=== PATIENT | male | born 1960 | race Two or more races ===

== ENCOUNTER 2021-11-01 18:19 | Emergency (ER) | payer OTHER ==
[~2021-11-01] VITALS: Ht 167.6 cm; Wt 54.4 kg
[2021-11-01] MEDS ORDERED: HYDR-3972 PO (18:29)
[2021-11-01] MEDS ORDERED: OXYC1TAB12 PO (18:29)
[2021-11-01] MEDS ORDERED: IV NS 1000 ML 1,000 ML IV ONE (18:30)
[2021-11-01] MEDS ORDERED: HYDROMORPHONE 1 MG/1 ML DISP.SYRIN IV ONE (18:30)
[2021-11-01] MEDS ORDERED: HYDROMORPHONE 1 MG/1 ML DISP.SYRIN ONE (18:31)
[2021-11-01] MEDS ORDERED: HYDROMORPHONE 2 MG/1 ML DISP.SYRIN ONE (18:31)
[2021-11-01 18:43] LABS: HEMATOCRIT 36.7 % (36.7-47.1); MEAN CORPUSCULAR HEMOGLOBIN 27.5 uug (23.8-33.4); MEAN CORPUSCULAR VOLUME 81.4 fL (73.0-96.2); PLATELET COUNT (AUTO) 379 K/uL (152-348)
[2021-11-01] MEDS ORDERED: IV NORMAL SALINE 250 ML IV ONE (18:46)
[2021-11-01] MEDS ORDERED: IOHEXOL 300MG/ML 100 ML INFUS..BTL ONE (18:46)
[2021-11-01] MEDS ORDERED: SWABABLE VALVE TRANSFER SET EA MC ONE (18:46)
[2021-11-01 18:57] LABS: BILIRUBIN,DIRECT 0.1 mg/dL (0.0-0.2); BILIRUBIN,TOTAL 0.3 mg/dL (0.2-1.0); CREATININE 1.4 mg/dL (0.6-1.3); TOTAL PROTEIN, SERUM 6.9 g/dL (6.4-8.2)
--- NOTE | 2021-11-01 19:00 | NUR ---
Assumed care of patient from day shift nurse Kuldip. Patient AAO. In no apparent distress. Lying comfortably in bed. Abd with dressing in place. Suprapubic catheter draining billy color urine. Nephrostomy tube, no drainage noted.
--- NOTE | 2021-11-01 19:35 | NUR ---
Back from CT.
[2021-11-01 20:02] LABS: *BILIRUBIN,URIN NEGATIVE (NEGATIVE); *BLOOD, URINE 3+ (NEGATIVE); *CLARITY,URINE CLOUDY (CLEAR); *COLOR,URINE AMBER (YELLOW); *KETONES,URINE NEGATIVE (NEGATIVE); *UROBILINOGEN,URINE 0.2 E.U./dl (NORMAL); LEUKOCYTE ESTERASE ,URINE 3+ (NEGATIVE); NITRITE, URINE NEGATIVE (NEGATIVE); UGLUCOSE NEGATIVE (NEGATIVE)
[2021-11-01] MEDS ORDERED: CEFTRIAXONE /D5W 50ML IVPB **ER PYXIS IV ONE (20:14)
[2021-11-01] MEDS ORDERED: CEFTRIAXONE 1 G in IV DEXTROSE 5% 50 ML IV ONE (20:15)
[2021-11-01] MEDS ORDERED: HYDR4TAB4 PO (21:14)
[2021-11-01] MEDS ORDERED: SULF1TAB48 PO (21:14)
--- NOTE | 2021-11-01 21:35 | NUR ---
Patient discharged to home in stable condition. Written and verbal after care instructions given. Patient verbalizes understanding of instructions. Stressed follow up or return to ER for worsening s/s. Patient ambulated fr the ER with steady gait. All belongings with patient.
[2021-11-01 22:01] VITALS: BP 113/77
[2021-11-01 22:22] LABS: BACTERIA,URINE MODERATE /HPF (NONE SEEN); RBC,URINE TNTC /HPF (0-3); SQUAMOUS EPITHELIAL CELL,UR FEW /HPF (NONE SEEN); WBC,URINE TNTC /HPF (0-3)
== END 2021-11-01 21:35 | disposition home or self-care (01) ==
LOC: ER 18:24
DX: C64.9 Malignant neoplasm of unspecified kidney, except renal pelvis (principal); C78.7 Secondary malignant neoplasm of liver and intrahepatic bile duct; N13.6 Pyonephrosis; Z59.02 Unsheltered homelessness; Z93.6 Other artificial openings of urinary tract status
CPT/HCPCS: 36415; 74176; 80048; 80076; 81001; 85025; 87086; 96361; 96365; 96375; 99285; J0696; J1170 ×2; J7040; Q9967; A4663